=== PATIENT | male | born 1975 | race Caucasian/White ===

== ENCOUNTER 2018-07-05 15:42 | Emergency (ER) | payer MEDICARE, OTHER ==
[~2018-07-05] VITALS: Ht 182.9 cm; Wt 81.8 kg
[2018-07-05] MEDS ORDERED: ACETAMINOPHEN 500 MG TABLET PO ONE (16:30)
[2018-07-05] MEDS ORDERED: BENZOCAINE/MENTHOL LOZENGE PO ONE (16:30)
[2018-07-05] MEDS ORDERED: KETOROLAC TROMETHAMINE 30 MG/ML VIAL IM ONE (16:30)
[2018-07-05] MEDS ORDERED: DEXAMETHASONE 4 MG TABLET PO ONE (16:30)
[2018-07-05 17:56] VITALS: BP 138/72
== END 2018-07-05 18:13 | disposition home or self-care (01) ==
LOC: EMS 15:44
DX: J02.8 Acute pharyngitis due to other specified organisms (principal); B97.89 Other viral agents as the cause of diseases classified elsewhere; F31.9 Bipolar disorder, unspecified; F12.90 Cannabis use, unspecified, uncomplicated; F15.90 Other stimulant use, unspecified, uncomplicated
CPT/HCPCS: 87430; 96372; 99284; J1885; J8540